=== PATIENT | female | born 1980 | race Caucasian/White ===

== ENCOUNTER 2020-10-13 14:19 | Inpatient (IN) ==
[2020-10-13] MEDS ORDERED: Buffered Lidocaine 1% SYRIN 1 ml INTRADERM ONE (15:48)
[2020-10-13] MEDS ORDERED: Lactated Ringers 1000 ml BAG 1,000 ML IV ONE (15:48)
[2020-10-13] MEDS ORDERED: Lactated Ringers 1000 ml BAG 1,000 ML IV SCH ×2 (16:00→21:00)
[2020-10-13 16:41] LABS: ABS Eosinophils 0.4 10^3/ul (0-0.6); ABS Lymphocytes 2.1 10^3/ul (1.0-4.8); ABS Monocytes 0.4 10^3/ul (0-0.8); ABS Neutrophils 5.3 10^3/ul (1.5-7.7); Eosinophil % 4.7 %; Hematocrit 33 % (35-47); Hemoglobin 11.6 g/dL (12.0-16.0); Lymphocyte % 25.2 %; Mean Corpuscular HGB Conc 35 g/dL (31-36); Mean Corpuscular Hemoglobin 30 pg (27-31); Mean Corpuscular Volume 87 fL (80-97); Mean Platelet Volume 7.8 fL (7.4-10.4); Platelet Count 233 10^3/uL (150-450); Red Blood Count 3.83 10^6 /uL (3.70-4.87); Red Cell Distribution Width 15 % (10-15); White Blood Count 8.2 10^3/uL (3.5-10.8)
[2020-10-13 16:53] LABS: Platelet Count 243 10^3/ul (150-450)
[2020-10-13 17:30] LABS: Schistocytes ABSENT
[2020-10-13 17:31] LABS: Activated Partial Thrombo Time 28.6 seconds (26.0-38.0); INR 1.08 (0.86-1.15)
[2020-10-13 17:41] LABS: Fibrinogen 385.8 mg/dL (110.8-404.3)
[2020-10-13] MEDS ORDERED: Oxytocin in LR 20 UNITS/1,000 ML BAG IVPB ONE ×2 (19:03→20:41)
[2020-10-13] MEDS ORDERED: Sodium Citrate/Citric Acid LIQ 15 ML UDC ONE ×2 (19:19→19:31)
[2020-10-13] MEDS ORDERED: ceFOXitin 2 GM IVPREMIX 2 GM/50 ML BAG ONE (19:21)
[2020-10-13] MEDS ORDERED: Lidocaine 0.5% SDV 50 ML VIAL ONE (19:37)
[2020-10-13] MEDS ORDERED: fentaNYL 100 mcg/2 ml 50 MCG/ML VIAL ONE (19:37)
[2020-10-13] MEDS ORDERED: Succinylcholine 200 mg VIAL 20 mg/ml 10 ml VIAL (200 mg) ONE (19:47)
[2020-10-13] MEDS ORDERED: Propofol 10 MG/ML 20 ML BTL ONE (19:47)
[2020-10-13] MEDS ORDERED: Etomidate 20 mg/10 ml 2 MG/ML 10 ml VIAL ONE (19:47)
[2020-10-13 20:12] LABS: Hematocrit 30 % (35-47); Hemoglobin 10.4 g/dL (12.0-16.0)
[2020-10-13] MEDS: Oxytocin in LR 20 UNITS/1,000 ML BAG IVPB SCH (20:30)
[2020-10-13] MEDS ORDERED: Dibucaine 1% OINT 28.35 GM TUBE PR PRN (20:40)
[2020-10-13] MEDS ORDERED: Witch Hazel PAD JAR TOPICAL PRN (20:40)
[2020-10-13] MEDS ORDERED: Glycerin ADULT 2.4 gm SUPP PR PRN (20:40)
[2020-10-14 00:22] LABS: ABS Basophils 0.1 10^3/ul (0-0.2); ABS Eosinophils 0.3 10^3/ul (0-0.6); ABS Monocytes 0.4 10^3/ul (0-0.8); ABS Neutrophils 6.8 10^3/ul (1.5-7.7); Eosinophil % 3.5 %; Hematocrit 28 % (35-47); Hemoglobin 9.7 g/dL (12.0-16.0); Lymphocyte % 20.5 %; Mean Corpuscular HGB Conc 35 g/dL (31-36); Mean Corpuscular Hemoglobin 30 pg (27-31); Mean Corpuscular Volume 87 fL (80-97); Mean Platelet Volume 7.8 fL (7.4-10.4); Platelet Count 217 10^3/uL (150-450); Red Blood Count 3.23 10^6 /uL (3.70-4.87); Red Cell Distribution Width 15 % (10-15); White Blood Count 9.6 10^3/uL (3.5-10.8)
[2020-10-14 04:04] VITALS: BP 105/56
[2020-10-14] MEDS: Oxytocin in LR 20 UNITS/1,000 ML BAG IVPB SCH (04:13)
== END 2020-10-14 07:23 | disposition home or self-care (01) | DRG 806 ==
LOC: MCHOBOUT 14:19 → MCHOB 16:03
PROVIDERS: ADMIT Obstetrics & Gynecology; ATTEND Obstetrics & Gynecology